=== PATIENT | female | born 1990 | race Hispanic/Latino ===

== ENCOUNTER 2019-12-23 13:19 | Emergency (ER) | payer OTHER ==
[2019-12-23] MEDS ORDERED: ACETAMINOPHEN ELIXIR 160 MG/5ML UDCUP ONE (14:58)
[2019-12-23] MEDS ORDERED: ONDANSETRON ODT 4 MG TAB ONE (14:58)
[2019-12-23 15:21] LABS: RAPID GROUP A STREP NEGATIVE (NEGATIVE)
== END 2019-12-23 15:53 | disposition home or self-care (01) ==
LOC: EDH 13:19
DX: O99.512 Diseases of the respiratory system complicating pregnancy, second trimester (principal); Z3A.20 20 weeks gestation of pregnancy; Z98.890 Other specified postprocedural states
CPT/HCPCS: 87804; 87880